=== PATIENT | female | born 1995 | race Caucasian/White ===

== ENCOUNTER → 2018-12-02 | Outpatient (CLI) | payer OTHER ==
[~2018-12-02] MED LIST: PNV1TABL47
== END | disposition home or self-care (01) ==
LOC: RAD 12:58
PROVIDERS: ATTEND Physician Assistant Surgical
DX: S90.32XA Contusion of left foot, initial encounter (principal); X58.XXXA Exposure to other specified factors, initial encounter; Y93.89 Activity, other specified; Y92.89 Other specified places as the place of occurrence of the external cause; Y99.8 Other external cause status